=== PATIENT | male | born 1980 | race African-American/Black ===

== ENCOUNTER 2018-07-06 20:52 | Emergency (ER) | payer OTHER, SELFPAY ==
[2018-07-06] MEDS ORDERED: Lidocaine 1% w/Epinephrine 1:100K 20 ML VIAL ONE (21:05)
== END 2018-07-06 21:43 ==
LOC: ERS 20:52
DX: S01.81XA Laceration without foreign body of other part of head, initial encounter (principal); F17.210 Nicotine dependence, cigarettes, uncomplicated; W22.8XXA Striking against or struck by other objects, initial encounter
CPT/HCPCS: 12013; J2001

== ENCOUNTER 2019-12-04 22:25 | Emergency (ER) | payer SELFPAY ==
[2019-12-04] MEDS ORDERED: Azithromycin 250 MG TAB ONE (23:48)
[2019-12-04] MEDS ORDERED: Sterile Water 10 ML ONE (23:48)
[2019-12-04] MEDS ORDERED: cefTRIAXone\\ROCEPHIN 250 MG VIAL ONE (23:48)
== END 2019-12-05 00:20 | disposition home or self-care (01) ==
LOC: ERS 22:25
DX: Z20.2 Contact with and (suspected) exposure to infections with a predominantly sexual mode of transmission (principal); F17.210 Nicotine dependence, cigarettes, uncomplicated
CPT/HCPCS: 96372; 99283; J0696

== ENCOUNTER 2020-11-25 09:31 | Emergency (ER) | payer BC ==
[2020-11-25] MEDS ORDERED: Ketorolac Tromethamine 30 MG/ML VIAL ONE (10:26)
[2020-11-25] MEDS ORDERED: HYDROcodone/Acetaminophen 5/325 mg Tablet ONE (10:26)
== END 2020-11-25 10:58 | disposition home or self-care (01) ==
LOC: ERS 09:31
DX: K03.81 Cracked tooth (principal); F17.210 Nicotine dependence, cigarettes, uncomplicated
CPT/HCPCS: 96372; 99283; J1885

== ENCOUNTER 2023-03-04 09:09 | Emergency (ER) | payer BC, SELFPAY | END 2023-03-04 09:36 | disposition home or self-care (01) | LOC: ERS 09:09 | DX: K02.9 Dental caries, unspecified (principal); K05.00 Acute gingivitis, plaque induced | CPT/HCPCS: 99282 ==